=== PATIENT | male | born 1955 | race African-American/Black ===

== ENCOUNTER 2018-12-15 12:46 | Emergency (ER) | payer MEDICARE, MEDICAID ==
[2018-12-15] MEDS ORDERED: Levofloxacin 500mg/100mL 500 MG/100 ML BAG IV ONE (13:44)
--- NOTE | 2018-12-15 13:44 | ED Physician Chart ---
ED Chief Complaint/HPI - Patient Information Date Seen:: 12/15/18 Time Seen:: 13:35 Chief Complaint:: Flank Pain History of Present Illness:: onset x 3 days of intermittent bilateral crampy flank pain and dysuria; pt Rx with Macrobid for UTI; no other complaints; no report of trauma, LOC, ALOC, AMS , H/As, S/T, neck pain, C/P, cough, SOB, Abd. Pain, A/N/V/D/C, fever, chills, bleeding, or back pain; pt is eating and urinating well; pt last urinated one hour [employer] Allergies:: Allergies Allergy/AdvReac Type Severity Reaction Status Date / Time No Known Allergies Allergy Verified 12/15/18 13:34 Historian:: Patient, EMS Review:: Nurse's Note Reviewed, Old Chart Reviewed, EMS run form Reviewed ED Review of Systems - Review of Systems General/Constitutional: No fever, No chills, No weight loss, No weakness, No diaphoresis, No edema, No loss of appetite Skin: No skin lesions, No rash, No bruising Head: No headache, No light-headedness Eyes: No loss of vision, No pain, No diplopia ENT: No earache, No nasal drainage, No sore throat, No tinnitus Neck: No neck pain, No swelling, No thyromegaly, No stiffness, No mass noted Cardio Vascular: No chest pain, No palpitations, No PND, No orthopnea, No edema Pulmonary: No SOB, No cough, No sputum, No wheezing GI: No nausea, No vomiting, No diarrhea, No pain, No melena, No hematochezia, No constipation, No hematemesis G/U: Dysuria, No frequency, No hematuria, No nacturia Musculoskeletal: No bone or joint pain, No back pain, No muscle pain Endocrine: No polyuria, No polydipsia Psychiatric: Prior psych history, Depression, Anxiety, No suicidal ideation, No homicidal ideation, No auditory hallucination, No visual hallucination Hematopoietic: No bruising, No lymphadenopathy Allergic/Immuno: No urticaria, No angioedema Neurological: No syncope, No focal symptoms, No weakness, No paresthesia, No headache, Seizure, No dizziness, No confusion, No vertigo ED Past Medical History - Past Medical History Obtainable: Yes Past Medical History: HTN, Asthma/COPD, Dyslipidemia, PUD/GERD, Seizures Family History: HTN Social History: Non Smoker, No Alcohol, No Drug Use, Single, Care Facility Surgical History: None Psychiatricy History: Depression Medication: Reviewed Family Medical History - Family Member Father History Unknown: Yes ED Physical Exam - Physical Examination General/Constitutional: Awake, Well-developed, well-nourished, Alert, No distress, GCS 15, Non-toxic appearing, Ambulatory Head: Atraumatic Eyes: Lids, conjuctiva normal, PERRL, EOMI Skin: Nl inspection, No rash, No skin lesions, No ecchymosis, Well hydrated, No lymphadenopathy ENMT: External ears, nose nl, TM canals nl, Nasal exam nl, Lips, teeth, gums nl , Oropharynx nl, Tonsils nl Neck: Nontender, Full ROM w/o pain, No JVD, No nuchal rigidity, No bruit, No mass, No stridor Other Neck comments:: supple; no meningeal signs; no cervical tenderness; no bruits Respiratory: Nl effort/Exclusion, Clear to Auscultation, No Wheeze/Rhonchi/Rales Cardio Vascular: RRR, No murmur, gallop, rubs, NL S1 S2, Carotid/Femoral/Distal pulses equal bilaterally GI: No tenderness/rebounding/guarding, No organomegaly, No hernia, Normal BS's, Nondistended, No mass/bruits, No McBurney tenderness, Rectum exam nl Other GI comments:: no pulsatile masses; Stool is Negative for Occult Blood : No CVA tenderness Extremities: No tenderness or effusion, Full ROM, normal strength in all extremities, No edema, Normal digits & nails Neuro/Psych: Alert/oriented, DTR's symmetric, Normal sensory exam, Normal motor strength, Judgement/insight normal, Mood normal, Normal gait, No focal deficits Other Neuro/Psych comments:: no focal signs Misc: Normal back, No paraspinal tenderness ED Labs/Radiology/EKG Results - Lab Results Comments:: Reviewed - Radiology Results Comments:: CXR: COPD; NAD - EKG Interpretations EKG Time:: 13:48 Rate & Rhythm: 92; NSR Comments:: non-specific st-t changes ED Septic Shock - . Is Septic Shock (SBP<90, OR Lactate>4 mmol\L) present?: No ED Reassessment (Disposition) - Reassessment Reassessment:: pt tolerated po fluids well in ER; pt is asymptomatic upon discharge Reassessment Condition:: Improved - Diagnosis Diagnosis:: Dx: Flank Pain; Hyponatremia; Hematuria; Nephrolithiasis; Hemorrhagic Cystitis; UTI - Aftercare/Follow up Instructions Aftercare/Follow-Up Instructions:: Counseled pt regarding lab results/diagnosis & need follow up, Refer to Discharge Instructions, Counseled pt & family regarding lab results/diagnosis & need follow up Notes:: Dr. yBrd notified who agreed to send pt back to his SNF Unit via EMS Medication Prescribed:: Continue Macrobid as prescribed; Use Urine Strainer; take all medications as prescribed/directed; encourage fluids especially citric acid juices - Patient Disposition Discharge/Transfer:: [facility] - SNF Accepting Physician:: Dr. Byrd Time Called:: 1500 Time Responded:: 15:00 Spoke to:: Dr. Byrd Condition at Disposition:: Stable, Improved (X-Rays Instructions; RTER prn if existing s/s reoccur and/or get worse and/or any other new s/s occur; ACIs given for all above Dx; Refer to Urologist/GI Specialist/Process Treater NIR; F/U with PMD in one day or prn; RTER prn if concerned)
[2018-12-15 14:06] LABS: URINE BILIRUBIN NEGATIVE (NEGATIVE); URINE BLOOD MODERATE (NEGATIVE); URINE GLUCOSE (UA) NEGATIVE (NEGATIVE); URINE KETONE TRACE mg/dL (NEGATIVE); URINE LEUKOCYTE ESTERASE TRACE (NEGATIVE); URINE MICROSCOPIC INDICATED? YES; URINE NITRATE NEGATIVE (NEGATIVE); URINE PH 7.5 (4.6 - 8.0); URINE PROTEIN 30 mg/dL (NEGATIVE); URINE SOURCE MIDSTREAM; URINE UROBILINOGEN 0.2 E.U./dL (0.2 - 1.0)
[2018-12-15 14:15] LABS: % BASOPHILS 0.9 % (0.0-2.0); % EOSINOPHILS 2.4 % (0.0-5.0); % LYMPHOCYTES 25.2 % (20.0-50.0); % MONOCYTES 10.9 % (2.0-10.0); % NEUTROPHILS 60.6 % (40.0-80.0); BASOPHILE ABSOLUTE 0.1 Th/cumm (0-0.2); EOSINOPHILE ABSOLUTE 0.2 Th/cmm (0.1-0.4); HEMATOCRIT 54.8 % (41.0-60); HEMOGLOBIN 17.8 gm/dL (12-16); LYMPHOCYTE ABSOLUTE 2.3 Th/cmm (1.5-3.0); MEAN CELL VOLUME 90.3 fl (80-99); MEAN CORPUSCULAR HEMOGLOBIN 29.4 pg (26.0-30.0); MEAN CORPUSCULAR HGB CONC 32.5 pg (28.0-36.0); MEAN PLATELET VOLUME 7.5 fl; NEUTROPHILE ABSOLUTE 5.7 Th/cmm (1.8-8.0); PLATELET COUNT 293 Th/cmm (150-400); RED BLOOD COUNT 6.08 Mil/cmm (4.30-5.70); RED CELL DISTRIBUTION WIDTH 13.7 % (11.5-20.0); WHITE BLOOD COUNT 9.3 Th/cmm (4.8-10.8)
[2018-12-15 14:22] LABS: ALB/GLOB RATIO 1.5 (1.0-1.8); ALBUMIN 4.7 gm/dL (4.2-5.5); ALKALINE PHOSPHATASE 115 U/L (34-104); ANION GAP 12.6 (7.0-16.0); BILIRUBIN,TOTAL 0.4 mg/dL (0.3-1.0); BUN - UREA NITROGEN 14 mg/dL (7-25); CALCIUM SERUM 9.5 mg/dL (8.6-10.3); CARBON DIOXIDE 27.1 mEq/L (21.0-31.0); CHLORIDE 98 mEq/L (98-107); CREATININE - SERUM 0.8 mg/dL (0.7-1.3); CREATININE KINASE 204 U/L (30-223); GFR AFRICAN-AMERICAN > 60.0 ml/min (>90); GFR NON AFRICAN-AMERICAN > 60.0 ml/min; GLUCOSE 85 mg/dL (70-105); POTASSIUM SERUM 3.7 mEq/L (3.5-5.1); SGOT 25 U/L (13-39); SGPT/ALT 32 U/L (7-52); SODIUM SERUM 134 mEq/L (136-145); TOTAL PROTEIN,SERUM 7.9 gm/dL (6.0-8.3)
[2018-12-15 14:32] LABS: INR 1.02 (0.5-1.4); PROTHROMBIN TIME (TEST) 10.6 SECONDS (9.5-11.5)
[2018-12-15 14:36] LABS: URINE COLOR YELLOW
[2018-12-15 14:43] LABS: URINE CLARITY SLIGHT HAZY (CLEAR)
[2018-12-15 14:46] LABS: URINE EPITHELIAL CELLS OCCASIONAL /lpf (FEW)
[2018-12-15 14:47] LABS: URINE BACTERIA FEW /hpf (NONE SEEN)
--- NOTE | 2018-12-16 08:30 | Diagnostic Imaging Report ---
Chest x-ray single view History: Pain Comparison: None The heart size is normal. No focal pulmonary parenchymal processes. No hilar or mediastinal abnormalities. Impression: No acute abnormalities
--- NOTE | 2018-12-16 09:42 | Diagnostic Imaging Report ---
CT abdomen and pelvis without intravenous contrast Indication: Flank pain, abdominal pain Comparison: None, Technique: Axial images were obtained from the lung bases to the bilateral proximal femurs without IV contrast. Coronal reconstructions were made. total DLP: [id number], [id number] FINDINGS: Extensive emphysematous changes are seen throughout the lung bases. Assessment of solid organs is limited due to lack of IV contrast. No evidence of focal hepatic lesions. The patient is status post cholecystectomy. There are indeterminate calcifications seen in the region of the second portion of the duodenum and head and uncinate process of the pancreas. No focal adrenal lesions. No evidence hydronephrosis or nephrolithiasis. Distended urinary bladder is noted. Copious stool is seen throughout the colon. Diverticulosis is noted without diverticulitis. Fluid-filled appendix is noted without surrounding inflammatory changes. No free fluid or free air. Diffuse atherosclerosis is noted. Degenerative changes of the spine are noted with scoliosis. There is old fracture left inferior pubic ramus. Old left iliac bone fracture is noted. IMPRESSION: No evidence of hydronephrosis or nephrolithiasis. Distended urinary bladder is noted. Diverticulosis without evidence of diverticulitis. Copious stool throughout the colon. Fluid-filled appendix without evidence of acute appendicitis Indeterminate calcifications seen along the head and uncinate process of the pancreas and along the second portion of duodenum. Findings may be due to old inflammatory process. Correlation with clinical history and old exams would be helpful. In addition, CT with IV contrast would provide additional detail assessment if there is concern for an occult mass lesion. Evidence of prior cholecystectomy. Atherosclerotic vascular disease. Diffuse emphysematous changes of the visualized thoracic spine.
== END 2018-12-15 19:18 ==
LOC: ER 12:46
DX: E87.1 Hypo-osmolality and hyponatremia (principal); N20.0 Calculus of kidney; N30.81 Other cystitis with hematuria; I10 Essential (primary) hypertension; J44.9 Chronic obstructive pulmonary disease, unspecified; E78.5 Hyperlipidemia, unspecified; K21.9 Gastro-esophageal reflux disease without esophagitis
CPT/HCPCS: 36415-UA; 71045-TC; 80053-TC; 81001-TC; 82550-TC; 83605; 84484-TC; 85025-TC; 85610-TC; 85730-TC; 87086-90; 93005; J1956; Z7502

== ENCOUNTER 2019-03-22 11:14 | Emergency (ER) | payer MEDICARE, MEDICAID ==
--- NOTE | 2019-03-22 11:40 | ED Physician Chart ---
ED Chief Complaint/HPI - Patient Information Date Seen:: 03/22/19 Time Seen:: 11:25 Chief Complaint:: Left knee pain for 2 days. History of Present Illness:: Pt came in by ambulance because of left knee pain for about 2 days. No known injury. No fever. Pt denies use of any analgesic use today. Left knee can be precipitated and aggravated with walking. Allergies:: Allergies Allergy/AdvReac Type Severity Reaction Status Date / Time No Known Allergies Allergy Verified 03/22/19 11:16 Vitals:: Vital Signs - 8 hr 03/22/19 11:15 Temp 97.6 F HR 66 RR 16 BP 122/80 O2 Sat % 95 Historian:: Patient Family MD/PCP:: Dr. Peguero LMP:: N/A Review:: Nurse's Note Reviewed ED Review of Systems - Review of Systems General/Constitutional: No fever, No weight loss, No weakness, No loss of appetite Skin: No skin lesions, No rash, No bruising Head: No headache, No light-headedness Eyes: No loss of vision, No pain, No diplopia ENT: No earache, No nasal drainage, No sore throat Neck: No neck pain, No stiffness Cardio Vascular: No chest pain Pulmonary: No SOB, No cough, No wheezing GI: No nausea, No vomiting, No diarrhea, No pain G/U: No dysuria, No frequency, No hematuria Musculoskeletal: Bone or joint pain (left knee pain, see HPI.), No back pain Endocrine: No polyuria, No polydipsia Psychiatric: No prior psych history Hematopoietic: No bruising, No lymphadenopathy Allergic/Immuno: No urticaria, No angioedema Neurological: No syncope, Weakness (chronic left hemiparesis related to prior CVA.), No paresthesia, No headache, No dizziness, No confusion ED Past Medical History - Past Medical History Past Medical History: HTN, CVA/TIA (at age 23 with L hemiparesis.), Seizures Family History: None Social History: Smoker, No Alcohol (now but had alcoholism in the past. Pt stopped alcohol abuse for over 23 years.), No Drug Use, , Care Facility Employment:: Retired. Surgical History: None Psychiatricy History: None Medication: Reviewed Family Medical History - Family Member Father History Unknown: Yes ED Physical Exam - Physical Examination General/Constitutional: Awake, Well-developed, well-nourished, Alert, No distress, Non-toxic appearing Other Gen/Cons comments:: Breathes comfortably, speaks clearly, and interacts appropriately. Head: Atraumatic Eyes: Lids, conjuctiva normal, PERRL Skin: Well hydrated, No lymphadenopathy ENMT: External ears, nose nl, Nasal exam nl, Oropharynx nl Neck: Nontender, Full ROM w/o pain, No nuchal rigidity, No mass Respiratory: Nl effort/Exclusion, Clear to Auscultation, No Wheeze/Rhonchi/Rales Cardio Vascular: RRR, No murmur, gallop, rubs GI: No tenderness/rebounding/guarding, No organomegaly, Normal BS's, Nondistended, No mass/bruits Other Extremities comments:: LLE: L hip is nontender and is unremarkable with good ROM. L knee: diffuse tenderness at anterior aspect. No swelling, erythema, crepitus, unusual warmth or open wound. ROM is decreased due to pain and contracture. There is noticeable weakness compared with the RLL. Pt states that it is chronic from his previous CVA. No detectable sensory/vascular deficit. Good distal pulse. Neuro/Psych: Alert/oriented (oriented x 3.), Mood normal (There is motor weakness in LUE and LLE with contractures. Pt states that this is a chronic condition related to his previous CVA.) ED Labs/Radiology/EKG Results - Radiology Results Results: Left knee X-ray: Based on my interpretation, mild degenerative changes noticed. No acute fx or subluxation. Official report is pending. ED Septic Shock - . Is Septic Shock (SBP<90, OR Lactate>4 mmol\L) present?: No - <6hrs of presentation: Vital Signs: Vital Signs - 8 hr 03/22/19 11:15 Temp 97.6 F HR 66 RR 16 BP 122/80 O2 Sat % 95 ED Reassessment (Disposition) - Reassessment Reassessment:: 1236 Pt feels much better. X-ray findings have been reviewed with pt. Pt now can move L knee fully without discomfort. Pt requests to be transported back to nursing facility now. Aftercare instructions have been given. I contacted pt's PCP Dr. Peguero on the phone with pertinent H & P and radiological findings reviewed. Dr. Peguero concurred to have pt transported back to nursing facility, and he resumes care of pt from here on. Reassessment Condition:: Improved - Diagnosis Diagnosis:: Left knee pain related to DJD. stable and improved. - Aftercare/Follow up Instructions Aftercare/Follow-Up Instructions:: Refer to Discharge Instructions Notes:: Continue present care. May take Tylenol 500 mg tab one tab by mouth every 6 hours as needed for pain. F/U with PCP Dr. Peguero in one day for recheck. Further care per Dr. Peguero. Pt is to return to ER immediately if condition worsens or if any further questions/ problems. Medication Prescribed:: None - Patient Disposition Discharge/Transfer:: Residential/Boarding Care Time:: 12:40 Condition at Disposition:: Stable, Improved
--- NOTE | 2019-03-22 12:39 | Diagnostic Imaging Report ---
Left knee (3 views) HISTORY: Pain No acute bony abnormalities. No fractures. Joint spaces are maintained. Vascular calcification is seen. IMPRESSION: 1. No acute bony abnormalities 2. Atherosclerotic vascular changes
== END 2019-03-22 12:52 | disposition short-term general hospital (02) ==
LOC: ER 11:14
DX: M17.12 Unilateral primary osteoarthritis, left knee (principal); M25.562 Pain in left knee; I10 Essential (primary) hypertension; F17.200 Nicotine dependence, unspecified, uncomplicated; Z86.73 Personal history of transient ischemic attack (TIA), and cerebral infarction without residual deficits
CPT/HCPCS: 73562-TC-LT; Z7502; Z7610